=== PATIENT | female | born 1985 | race Caucasian/White ===

== ENCOUNTER 2023-01-12 16:07 | Emergency (ER) | payer SELFPAY ==
[~2023-01-12] VITALS: Ht 165.1 cm; Wt 83.9 kg
[2023-01-12 19:16] VITALS: BP 114/47
== END 2023-01-12 19:17 | disposition home or self-care (01) ==
LOC: ED 16:07
DX: K59.00 Constipation, unspecified (principal)
CPT/HCPCS: 36415; 76705; 80053; 81001; 83690; 84703; 85025; 96374; 96375; 99284-25; J1170; J1885; J2405; J7030